=== PATIENT | male | born 1975 | race Native Hawaiian/Other Pacific Islander ===

== ENCOUNTER 2017-09-09 07:01 | Emergency (ER) | payer OTHER ==
[2017-09-09 08:00] LABS: Basophils # (Auto) 0.1 K/mm3 (0.0-0.1); Eosinophils # (Auto) 0.2 K/mm3 (0.0-0.4); Eosinophils % (Auto) 2.5 % (0.0-4.3); Hematocrit 47.4 % (35.5-45.6); Hemoglobin 16.6 gm/dl (11.8-15.2); Lymphocytes # (Auto) 2.2 K/mm3 (1.2-5.4); Lymphocytes % (Auto) 31.4 % (13.4-35.0); Mean Corpuscular HGB Conc 35 % (32-34); Mean Corpuscular Hemoglobin 31 pg (28-32); Mean Corpuscular Volume 88 fl (84-94); Monocytes # (Auto) 0.6 K/mm3 (0.0-0.8); Platelet Count 181 K/mm3 (140-440); Red Blood Count 5.42 M/mm3 (3.65-5.03)
[2017-09-09 08:14] LABS: Alanine Aminotransferase 39 units/L (7-56); Albumin 4.1 g/dL (3.9-5); BUN/Creatinine Ratio 16; Blood Urea Nitrogen 13 mg/dL (9-20); Hemolysis Index 10
[2017-09-09] MEDS ORDERED: NACL 0.9% 1000 ML 1,000 ML IV ONE (10:42)
[2017-09-09] MEDS ORDERED: HumuLIN R IV ONE (10:42)
[2017-09-09] MEDS ORDERED: NEURONTIN PO ONE (10:42)
--- NOTE | 2017-09-09 11:54 | Emergency Department Report ---
HPI - General Chief Complaint: Extremity Problem,Nontraumatic Time Seen by Provider: 09/09/17 10:41 - HPI HPI: The patient is a 42-year-old male with a history of diabetes, who presents for evaluation of tingling in pain to digits of the left hand. The patient states that for the past 2 days she has experienced moderate in severity sharp and stinging quality pain and tingling to the left first through third digits, exacerbated wit prolonged use of the hand. He denies trauma to the wrist or hands, loss of motor function, swelling, redness, paleness, or paresthesias or other focal neurological deficit elsewhere. ED Past Medical Hx - Past Medical History Hx Diabetes: Yes Additional medical history: hyperlipidemia - Surgical History Past Surgical History?: No - Social History Smoking Status: Never Smoker Substance Use Type: None ED Review of Systems ROS: Stated complaint: FINGER NUMBNESS, LFT HAND Other details as noted in HPI Constitutional: denies: fever ENT: denies: throat or neck pain Respiratory: denies: cough, shortness of breath Cardiovascular: denies: chest pain Endocrine: denies unexplained weight loss or gain Gastrointestinal: denies: abdominal pain, nausea Genitourinary: denies: dysuria Musculoskeletal: reports left hand digit pain and tingling denies: leg swelling Skin: denies: rash Neurological: denies: headache Hematological/Lymphatic: denies: easy bleeding or easy bruising Psych: denies sadness or hopelessness Physical Exam - Physical Exam Vital Signs: Vital Signs 09/09/17 09/09/17 09/09/17 06:58 09:56 09:57 Temperature 98.3 F 98.8 F Pulse Rate 64 61 Respiratory 18 20 20 Rate Blood Pressure 113/77 Blood Pressure 126/76 [Left] O2 Sat by Pulse 98 98 98 Oximetry Physical Exam: General: well-nourished, well-developed, no acute distress Head: Normocephalic, atraumatic Eyes: normal sclera ENT: Mucous membranes are pale and dry Neck: No neck stiffness, no cervical adenopathy Respiratory: Breath sounds equal bilaterally, no wheezing, rales, or rhonchi Cardio: S1 and S2 present, no murmurs, rubs, gallops, capillary refill is delayed Musc: Positive Tinel's and Phalen's test of the left hand present, sensation, motor function, and pulses in the left distal upper extremity/hand/digits intact , capillary refill is brisk Skin: No rash Neuro: no facial drooping, normal speech Psych: Normal affect ED Course Vital Signs 09/09/17 09/09/17 09/09/17 06:58 09:56 09:57 Temperature 98.3 F 98.8 F Pulse Rate 64 61 Respiratory 18 20 20 Rate Blood Pressure 113/77 Blood Pressure 126/76 [Left] O2 Sat by Pulse 98 98 98 Oximetry ED Medical Decision Making - Lab Data Result diagrams: 09/09/17 07:48 09/09/17 07:48 - Medical Decision Making The patient was seen and examined by myself. The patient is placed on a surveillance monitor and continuous pulse ox. On initial evaluation, the patient was found to be in no distress. Evaluation orders were placed. Lab results reveal elevated glucose of 300, with normal anion gap and bicarbonate. Otherwise labs are unrevealing. The patient given 1 L normal saline fluid bolus for treatment of his dehydration, and IV insulin for treatment of his hyperglycemia. Exam findings are consistent with carpal tunnel syndrome. The patient is given a tablet of Motrin and a Velcro wrist splint. The patient was reevaluated and reported that their symptoms were markedly improved. The patient is stable for discharge with outpatient follow-up. The patient is given follow-up and return instructions. The patient expressed understanding and agreed with the plan. The patient is discharged in stable condition. Critical care attestation.: If time is entered above; I have spent that time in minutes in the direct care of this critically ill patient, excluding procedure time. ED Disposition Clinical Impression: Carpal tunnel syndrome of left wrist, Acute hyperglycemia Disposition: TO HOME OR SELFCARE Is pt being admited?: No Does the pt Need Aspirin: No Condition: Stable Instructions: Carpal Tunnel Syndrome (ED), Diabetes Mellitus Type 2 in Adults ( ED), Diabetic Foot Care (ED), Diabetic Neuropathy (ED), Diabetic Retinopathy (ED ) Referrals: PRIMARY CAREMD [Primary Care Provider] - 3-5 Days MYRIAM OEJDA MD [Staff Physician] - 3-5 Days Time of Disposition: 12:29
[2017-09-09] MEDS ORDERED: TORADOL IV ONE (12:03)
[2017-09-09 13:19] VITALS: BP 104/71
== END 2017-09-09 13:19 | disposition home or self-care (01) ==
LOC: ED 07:01
DX: G56.02 Carpal tunnel syndrome, left upper limb (principal); E11.65 Type 2 diabetes mellitus with hyperglycemia; E78.5 Hyperlipidemia, unspecified
CPT/HCPCS: 29125; 36415; 80048; 80053; 82962; 85025; 96361; 96374; 96375; 99284; J1885; J7030; J1815

== ENCOUNTER 2021-08-18 10:51 | Outpatient (CLI) | payer OTHER ==
[2021-08-18 12:31] LABS: Basophils # (Auto) 0.1 K/mm3 (0.0-0.1); Basophils % (Auto) 1.1 % (0.0-1.8); Eosinophils # (Auto) 0.1 K/mm3 (0.0-0.4); Eosinophils % (Auto) 1.6 % (0.0-4.3); Hematocrit 50.1 % (35.5-45.6); Hemoglobin 17.3 gm/dl (11.8-15.2); Lymphocytes # (Auto) 2.3 K/mm3 (1.2-5.4); Lymphocytes % (Auto) 33.5 % (13.4-35.0); Mean Corpuscular HGB Conc 35 % (32-34); Mean Corpuscular Volume 88 fl (84-94); Monocytes # (Auto) 0.6 K/mm3 (0.0-0.8); Monocytes % (Auto) 8.9 % (0.0-7.3); Platelet Count 165 K/mm3 (140-440); Red Blood Count 5.67 M/mm3 (3.65-5.03)
[2021-08-18 13:40] LABS: Alanine Aminotransferase 23 units/L (7-56); BUN/Creatinine Ratio 19; Blood Urea Nitrogen 17 mg/dL (9-20); Calcium 9.8 mg/dL (8.4-10.2); Chol/HDL Ratio 5.86 %; HDL Cholesterol 44 mg/dL (40-59); Hemolysis Index 15; LDL Cholesterol,Direct 205 mg/dL (50-130)
[2021-08-18 15:13] LABS: Creatinine,Urine 95.9 mg/dL (0.1-20.0)
[2021-08-18 15:14] LABS: Microalbumin/Creatinine Ratio 19.8 ug/mg
== END 2021-08-18 10:52 | disposition home or self-care (01) ==
LOC: LABHHL 10:51
PROVIDERS: ATTEND Internal Medicine
DX: Z00.00 Encounter for general adult medical examination without abnormal findings (principal); E11.65 Type 2 diabetes mellitus with hyperglycemia; E55.9 Vitamin D deficiency, unspecified; E78.5 Hyperlipidemia, unspecified; R63.4 Abnormal weight loss
CPT/HCPCS: 36415; 80053; 80061; 82043; 82306; 83036; 84443; 85025